=== PATIENT | female | born 1945 | race Caucasian/White ===

== ENCOUNTER 2017-02-21 20:01 | Emergency (ER) | payer MEDICARE, OTHER ==
--- OUTSIDE RECORDS SUMMARY | 2017-02-21 20:15 | XMS REPORT ---
:1945 External Reference #:[id number] Author Organization [employer] [facility] Address [address] [address] Phone [phone] Care Team Providers Name Role Phone Gumaro Etienne MD Primary Care Physician Unavailable Payers Type Date Identification Numbers Payment Provider Subscriber Health Maintenance Policy Number: [facility] Delia Aalrcon [facility] ([facility]) [id number] PayID: [id number] [address] [place] [id number] Problems Description No Information Social History Type Date Description Comments Smoking Patient has never smoked Allergies, Adverse Reactions, Alerts Date Description Reaction Status Severity Comments 02/16/2017 Sulfa Antibiotics active Medications Medication Date Status Form Strength Qnty SIG Indications Ordering Provider Metformin HCL 02/16/ Active Tablets ER 1000mg 30tabs 1 tablets E11.9 Martell ER (Osm) 2018 24HR once ABHILASH Florence daily Lantus Solostar 02/16/ Active Solution 100Unit/ML 30ml inject 40 E11.9 Martell 2018 Pen-Inject units ABHILASH Florence every night at bedtime Levetiracetam / Active Tablets 750mg Unknown 0000 Oxcarbazepine / Active Tablets 150mg Unknown 0000 Simvastatin 00/ Active Tablets 40mg Bogdan Bourgeois MD Levothyroxine / Active Tablets 100mcg Kristopher, Sodium 0000 ABHILASH Camara Losartan / Active Tablets 25mg Kristopher, Potassium 0000 ABHILASH Camara Metoprolol / Active Tablets ER 25mg Kristopher, Succinate ER 0000 24HR ABHILASH Camara Sertraline HCL / Active Tablets 100mg Kristopher, 0000 ABHILASH Camara Acetaminophen / Active Tablets 500mg 1-2 tabs Unknown 0000 3x a day as needed Aspirin / Active Tablets DR 81mg 1 by Unknown 0000 mouth every day Systane / Active Solution 0.4-0.3% 1 drop Unknown 0000 each eye twice a day Ibuprofen / Active Capsules 200mg as needed Unknown 0000 Acetaminophen / Active Tablets 25-500mg 2 by Unknown PM Extra 0000 mouth at Strength hs. Freestyle Lite / Active 3 times Unknown Lancets 0000 daily or as needed dx e11.65 Freestyle Lite / Active 3 times a Unknown Test Strips 0000 day or as needed e11.65 Levemir 02/16/ Hx Solution 100Unit/ML Inject 45 E11.9 Martell Tripathi 2018 - Pen-Inject Units ABHILASH Florence 2017 Morning And 40 Units At Bedtime Vital Signs Date Vital Result Comment 02/16/2017 Height 67.25 inches 5'7.25" Weight 249.50 lb Heart Rate 66 /min BP Systolic 110 mmHg BP Diastolic 60 mmHg Body Temperature 97.3 F O2 % BldC Oximetry 96 % BMI (Body Mass Index) 38.8 kg/m2 Results Description No Information Procedures Description No Information Plan of Care Future Appointment(s):03/20/2017 2:40 pm - Martell Florence NP at [facility] Internal Medicine [facility]02/16/2017 - Martell Florence NPE11.9 Type 2 diabetes mellitus without complicationsNew Medication:Metformin HCL ER (Osm) 1000 mgLantus Solostar 100 Unit/MLLevemir Flextouch 100 Unit/MLComments:I have changed the metformin to the extended release which may cause less loose stools. I have changed the insulin to Lantus. Start taking 40 units at night. Continue checking your blood glucose as youahve been. If after three days your morning blood glucose is still greater than 150 increase the Lantus by 2 units. You can do this every three days. It is important to try to eat several small meals throughout the day.Follow up:1 month f/u GABRIELLE: [facility]hil Kenney [facility] [place]: Goal Hemoglobin A1c is less than 7.0%. Goal Blood pressure is less than 130/ 85.E03.9 Hypothyroidism, unspecified
[2017-02-21] MEDS ORDERED: NS 0.9% 1000 ML* 1,000 ML IV SCH (21:15)
[2017-02-21 21:27] LABS: ABS Basophils 0.1 10^3/ul (0-0.2); ABS Eosinophils 0.2 10^3/ul (0-0.6); ABS Lymphocytes 1.8 10^3/ul (1.0-4.8); ABS Monocytes 0.4 10^3/ul (0-0.8); ABS Neutrophils 3.2 10^3/ul (1.5-7.7); ABS Nucleated RBC 0 10^3/ul; Eosinophil % 3.7 % (0-6); Hematocrit 37 % (35-47); Hemoglobin 12.5 g/dl (12.0-16.0); Lymphocyte % 31.8 % (25-47); Mean Corpuscular HGB Conc 33 g/dl (31-36); Mean Corpuscular Hemoglobin 31 pg (27-31); Mean Corpuscular Volume 93 fL (80-97); Mean Platelet Volume 8 um3 (7.4-10.4); Nucleated Red Blood Cells % 0; Platelet Count 183 10^3/ul (150-450); Red Blood Count 4.02 10^6/ul (4.0-5.4); Red Cell Distribution Width 13 % (10.5-15); White Blood Count 5.7 10^3/ul (3.5-10.8)
[2017-02-21] MEDS ORDERED: levETIRAcetam TAB* 500 MG PO ONE (21:35)
[2017-02-21] MEDS ORDERED: OXcarbazepine TAB(*) 300 MG PO ONE (21:35)
[2017-02-21 21:39] LABS: Urine Appearance Clear; Urine Blood 1+ (Negative); Urine Color Straw; Urine Ketones 2+ (Negative); Urine Protein Negative (Negative); Urine Specific Gravity 1.028 (1.010-1.030); Urine Urobilinogen Negative (Negative)
[2017-02-21 21:40] LABS: EGFR Non-African American 81.2 (>60)
[2017-02-21] MEDS ORDERED: Insulin ASPART (NF) 100 UNIT/ML VIAL SUBCUT ONE (21:52)
[2017-02-21] MEDS ORDERED: Insulin LISPRO* 1 UNITS UNIT SUBCUT ONE (22:15)
[2017-02-22 00:10] LABS: EGFR Non-African American 82.5 (>60)
[2017-02-22] MEDS ORDERED: Insulin REGULAR(*) 100 UNITS in NS 0.9% 100 ML* 100 ML IVPB ONE (01:10)
[2017-02-22] MEDS ORDERED: NS 0.9% 1000 ML* 1,000 ML IV SCH (01:15)
[2017-02-22] MEDS ORDERED: Insulin LISPRO* 1 UNITS UNIT SUBCUT ONE (01:42)
[2017-02-22] MEDS ORDERED: Dextrose 50% Syringe 50 ML* 25 GM/50 ML SYRINGE IV PUSH PRN (01:42)
[2017-02-22] MEDS ORDERED: Insulin ASPART (NF) 100 UNIT/ML VIAL SUBCUT SCH (02:00)
[2017-02-22 04:00] VITALS: BP 134/66
--- NOTE | 2017-03-06 20:47 | ED ---
Pino [place] Natalie, scribed for Stephon Abreu MD on 02/21/17 at 2059 . HPI Diabetic - HPI Summary HPI Summary: The pt is a 71 y/o F presenting to the ED c/o blood sugar of 440 taken at her doctors office today. She started taking Lantus on 02/16/17 after switching to a new doctor. She also was prescribed to change from 40 units of insulin to 20 units because her blood sugar was too low. She checks her blood sugar about 3-4 times a day, and her normal blood sugar varies, but is never this high. Pt additionally c/o nausea, sleep loss, and depression. Pt denies fevers, chills, dysuria, and vomiting. She has hx of seizures (last in August 2016) that are controlled now. - History Of Current Complaint Chief Complaint: EDDiabeticProb Hx Obtained From: Patient Onset/Duration: Sudden Onset Severity Initially: Moderate Severity Currently: Moderate Character: Alert Aggravating: Medication Change - started taking Lantus on 02/16/17 and was switched from 40 units to 20 units Associated Signs & Symptoms: Nausea Related History: Insulin Requiring - Allergies/Home Medications Allergies/Adverse Reactions: Allergies Allergy/AdvReac Type Severity Reaction Status Date / Time Sulfa Antibiotics Allergy Dizziness Verified 12/25/16 13:52 PMH/Surg Hx/FS Hx/Imm Hx Previously Healthy: No Endocrine/Hematology History: Reports: Hx Diabetes, Hx Thyroid Disease Cardiovascular History: Denies: Hx Hypertension, Hx Pacemaker/ICD History: Denies: Hx Renal Disease Sensory History: Denies: Hx Hearing Aid Psychiatric History: Denies: Hx Panic Disorder - Surgical History Surgery Procedure, Year, and Place: c section x 3. eyelid surgery 2009 Infectious Disease History: No Infectious Disease History: Denies: Traveled Outside the [place] in Last 30 Days - Family History Known Family History: Positive: Hypertension, Diabetes - Social History Alcohol Use: None Substance Use Type: Reports: None Smoking Status (MU): Never Smoked Tobacco Review of Systems Negative: Fever, Chills Positive: Nausea. Negative: Vomiting Negative: dysuria Neurological: Other - sleep loss Positive: Depressed All Other Systems Reviewed And Are Negative: Yes Physical Exam - Summary Physical Exam Summary: Appearance: Well-appearing, Well-nourished Skin: Warm, Dry, No rash Eyes: Normal, PERRL, EOMI, sclera anicteric ENT: Normal Neck: Supple, nontender Respiratory: Clear to auscultation Cardiovascular: S1, S2, no murmur, no rub, no gallop Abdomen: Soft, nontender, no organomegaly Bowel sounds: Present Musculoskeletal: Normal, Strength/ROM Intact, no edema, pulses symmetrical Neurological: Normal, A&Ox3, cranial nerves II-XII WNL, follows commands, gait not tested, sensation intact to pin and light touch Psychiatric: depressed affect, behavior appropriate, dressed appropriately, judgment intact Triage Information Reviewed: Yes Vital Signs On Initial Exam: Initial Vitals Temp Pulse Resp BP Pulse Ox 97.0 F 76 16 155/75 99 02/21/17 20:03 02/21/17 20:03 02/21/17 20:03 02/21/17 20:03 02/21/17 20:03 Vital Signs Reviewed: Yes - Kwame Coma Scale Coma Scale Total: 15 Diagnostics - Vital Signs Vital Signs Temp Pulse Resp BP Pulse Ox 02/21/17 20:03 97.0 F 76 16 155/75 99 - Laboratory Result Diagrams: 02/21/17 21:15 02/21/17 23:41 Lab Statement: Any lab studies that have been ordered have been reviewed, and results considered in the medical decision making process. Diabetic Course/Dx - Course Course Of Treatment: The patient presented to [facility] with blood sugar of 440 after recently changing diabetes medication type and dosage. In the ED course the patient was given normal saline IV fluids, Humalog, Keppra, and Trileptal. Bloodwork shows elevated glucose level of 549. A second glucose shows 413. A third glucose shows 161. UA shows elevated levels of ketones, blood, and glucose. The patient is diagnosed with Type II Diabetes. The patient will be discharged home. The patient is prescribed Novolog and Lantus. Patient is agreeable with this plan. - Diagnoses Provider Diagnoses: Type 2 diabetes mellitus Discharge - Discharge Plan Condition: Fair Disposition: HOME Prescriptions: Insulin Aspart [Novolog] 100 unit SC AC PRN #1 bottle PRN Reason: elevated blood sugar Insulin Glargine [Lantus] 30 unit SC DAILY #1 bottle Patient Education Materials: Type 2 Diabetes in Adults (ED) Referrals: Martell Florence [employer] [Primary Care Provider] - The documentation as recorded by the Pino galvin Natalie accurately reflects the service I personally performed and the decisions made by me, Stephon Abreu MD.
== END 2017-02-22 03:57 | disposition home or self-care (01) ==
LOC: ED 20:01
DX: E11.9 Type 2 diabetes mellitus without complications (principal); Z88.1 Allergy status to other antibiotic agents; Z88.2 Allergy status to sulfonamides
CPT/HCPCS: 36415; 80048; 80053; 81003; 81015; 83036; 85025; 96360; 96372; 99284; A9270-GY; J1815